=== PATIENT | female | born 1975 | race Caucasian/White ===

== ENCOUNTER 2019-08-02 16:02 | Emergency (ER) | payer MEDICAID, MEDICARE ==
[2019-08-02 16:11] VITALS: BP 109/65
[2019-08-02 16:36] LABS: ABSOLUTE BASOPHILS # (AUTO) 0.1 10^3/uL (0.0-0.2); ABSOLUTE LYMPHOCYTES (AUTO) 3.2 10^3/uL (0.5-4.7); ABSOLUTE MONOCYTES (AUTO) 0.6 10^3/uL (0.1-1.4); ABSOLUTE NEUT (AUTO) 7.8 10^3/uL (1.7-8.2); BASOPHILS % (AUTO) 0.5 % (0-2); EOSINOPHILS % (AUTO) 0.3 % (0-6); HEMATOCRIT 42.2 % (36.0-47.0); HEMOGLOBIN 14.5 g/dL (12.0-15.5); LYMPHOCYTES % (AUTO) 27.1 % (13-45); MEAN CORPUSCULAR HEMOGLOBIN 31.4 pg (27.0-33.4); MEAN CORPUSCULAR HGB CONC 34.4 g/dL (32.0-36.0); MEAN CORPUSCULAR VOLUME 91 fl (80-97); MONOCYTES % (AUTO) 5.4 % (3-13); PLATELET COUNT 220 10^3/uL (150-450); RED BLOOD COUNT 4.63 10^6/uL (3.72-5.28); RED CELL DISTRIBUTION WIDTH 14.7 % (11.5-14.0); SEGMENTED NEUTROPHILS % (AUTO) 66.7 % (42-78); TOTAL CELLS COUNTED % (AUTO) 100 %; WHITE BLOOD COUNT 11.7 10^3/uL (4.0-10.5)
[2019-08-02] MEDS ORDERED: LORAZEPAM 1 MG TABLET PO ONE (16:37)
--- NOTE | 2019-08-02 16:41 | ER Document Report ---
ED Substance Abuse / Acc. OD - General Chief Complaint: Alcohol Withdrawl Stated Complaint: ETOH/NEEDS LABS FOR WRIGHT Time Seen by Provider: 08/02/19 16:11 Mode of Arrival: Ambulatory Information source: Patient Notes: Patient is a 44-year-old female presenting to the emergency department with josefa houser for medical clearance so that she can go to [place] for substance abuse treatment. Patient reports she has a long history of alcoholism, states she was sober for 6 years until she relapsed 4 days ago. Patient reports she has been drinking beer for the last 4 days. She states her last drink was at 9:00 this morning. Patient reports that she feels like she is going to go through DTs. She denies any suicidal homicidal ideations. - Related Data Allergies/Adverse Reactions: morphine [Morphine] Allergy (Severe, Verified 05/03/13 18:32) Anaphylaxis Past Medical History - General Information source: Patient - Social History Smoking Status: Current Every Day Smoker Frequency of alcohol use: Heavy Drug Abuse: None Family History: Reviewed & Not Pertinent Patient has homicidal ideation: No - Past Medical History Cardiac Medical History: Reports: Hx Hypertension Malignancy Medical History: Reports: Hx Cervical Cancer Past Surgical History: Reports: Hx Orthopedic Surgery - Immunizations Hx Diphtheria, Pertussis, Tetanus Vaccination: No - unknown Review of Systems - Review of Systems Constitutional: No symptoms reported EENT: No symptoms reported Cardiovascular: No symptoms reported Respiratory: No symptoms reported Gastrointestinal: No symptoms reported Genitourinary: No symptoms reported Female Genitourinary: No symptoms reported Musculoskeletal: No symptoms reported Skin: No symptoms reported Hematologic/Lymphatic: No symptoms reported Neurological/Psychological: No symptoms reported Physical Exam - Vital signs Vitals: Temp Pulse Resp BP Pulse Ox 98.8 F 109 H 14 109/65 96 08/02/19 16:08 08/02/19 16:08 08/02/19 16:08 08/02/19 16:08 08/02/19 16:08 - Notes Notes: PHYSICAL EXAMINATION: GENERAL: Well-appearing, well-nourished and in no acute distress. HEAD: Atraumatic, normocephalic. EYES: Pupils equal round and reactive to light, extraocular movements intact, conjunctiva are normal. ENT: Nares patent, oropharynx clear without exudates. Moist mucous membranes. NECK: Normal range of motion, supple without lymphadenopathy LUNGS: Breath sounds clear to auscultation bilaterally and equal. No wheezes rales or rhonchi. HEART: Regular rate and rhythm without murmurs ABDOMEN: Soft, nontender, nondistended abdomen. No guarding, no rebound. No masses appreciated. Female : deferred Musculoskeletal: Normal range of motion, no pitting or edema. No cyanosis. NEUROLOGICAL: Cranial nerves grossly intact. Normal speech, normal gait. Normal sensory, motor exams PSYCH: Anxious, tearful. SKIN: Warm, Dry, normal turgor, no rashes or lesions noted. Course - Re-evaluation Re-evalutation: 08/02/19 16:42 Patient now requesting to leave, she states that she does not want to go to rehab. Patient is alert, oriented, able to make her own decisions, she is able to ambulate without assistance. She is leaving AGAINST MEDICAL ADVICE. - Vital Signs Vital signs: Temp Pulse Resp BP Pulse Ox 98.8 F 109 H 14 109/65 96 08/02/19 16:24 08/02/19 16:08 08/02/19 16:08 08/02/19 16:08 08/02/19 16:08 - Laboratory Result Diagrams: 08/02/19 16:20 08/02/19 16:20 Discharge - Discharge Clinical Impression: Left against medical advice Condition: Stable Disposition: AGAINST MEDICAL ADVICE
[2019-08-02 16:53] LABS: ACETAMINOPHEN < 10 ug/mL (10-30); ALBUMIN 4.4 g/dL (3.5-5.0); ALCOHOL 286 mg/dL (NONE DETECTED); ALKALINE PHOSPHATASE 116 U/L (38-126); ANION GAP 13 (5-19); ASPARTATE AMINO TRANSFERASE 44 U/L (14-36); BILIRUBIN,TOTAL 0.5 mg/dL (0.2-1.3); BLOOD UREA NITROGEN 11 mg/dL (7-20); CALCIUM 8.9 mg/dL (8.4-10.2); CARBON DIOXIDE 23 mmol/L (22-30); CHLORIDE 102 mmol/L (98-107); GLUCOSE 97 mg/dL (75-110); POTASSIUM 4.6 mmol/L (3.6-5.0); SALICYLATE < 1.0 mg/dL (2.0-20.0)
--- NOTE | 2019-08-02 21:25 | EKG REPORT ---
SEVERITY:- NORMAL ECG - SINUS RHYTHM : Confirmed by: Emma Hernández MD 02-Aug-2019 21:24:29
== END 2019-08-02 16:40 | disposition left against medical advice (07) ==
LOC: ER 16:02
DX: F10.239 Alcohol dependence with withdrawal, unspecified (principal); F17.200 Nicotine dependence, unspecified, uncomplicated; I10 Essential (primary) hypertension; Z85.41 Personal history of malignant neoplasm of cervix uteri
CPT/HCPCS: 36415; 80053; 80307; 84703; 85025; 93005; 93010; 99284

== ENCOUNTER 2019-08-14 17:34 | Emergency (ER) | payer MEDICARE ==
[2019-08-14 19:00] VITALS: BP 113/50
--- NOTE | 2019-08-14 19:46 | ER Document Report ---
ED General - General Chief Complaint: Cough Stated Complaint: CHEST CONGESTION Time Seen by Provider: 08/14/19 18:59 Mode of Arrival: Ambulatory Information source: Patient Notes: 44-year-old female presented to ED for complaint of cough off and on for week no fever no chills. She states she is an alcoholic and she needs help with her alcoholism. She states she needs detox. I explained to her that she needed to go to [place] for detox that we do not do detox in the emergency room. She states she did not want any blood she does not recently and then she went home afterwards she just wanted to be given medicine for detox. I did explain to her that that is not the process in the emergency room. She states that I cannot give her medicine to help her detox and she just cannot go home because that is what she is here for. I explained to her that she would need to get blood work urine and then talk with [facility] for detox. Patient states she was just going to go home. She is alert oriented able answer questions appropriately she is walking with a even steady gait. Lungs are clear to auscultation she is afebrile. - HPI Onset: Other - Patient states her last alcoholic drink was just before coming to the emergency room and she needed medicine for detox Onset/Duration: Persistent Quality of pain: No pain Severity: None Pain Level: Denies Associated symptoms: None Exacerbated by: Denies Relieved by: Denies Similar symptoms previously: Yes Recently seen / treated by doctor: Yes - Related Data Allergies/Adverse Reactions: morphine [Morphine] Allergy (Severe, Verified 05/03/13 18:32) Anaphylaxis Past Medical History - General Information source: Patient - Social History Smoking Status: Current Every Day Smoker Frequency of alcohol use: Heavy Drug Abuse: Prescription drugs Lives with: Homeless Family History: Reviewed & Not Pertinent Patient has homicidal ideation: No - Past Medical History Cardiac Medical History: Reports: Hx Hypertension Pulmonary Medical History: Reports: None EENT Medical History: Reports: None Neurological Medical History: Reports: None Endocrine Medical History: Reports: None Renal/ Medical History: Reports: None Malignancy Medical History: Reports: Hx Cervical Cancer GI Medical History: Reports: None Musculoskeletal Medical History: Reports Hx Musculoskeletal Deformity, Reports Hx Musculoskeletal Trauma Skin Medical History: Reports None Psychiatric Medical History: Reports: None Traumatic Medical History: Reports: None Infectious Medical History: Reports: None Past Surgical History: Reports: Hx Orthopedic Surgery - Immunizations Hx Diphtheria, Pertussis, Tetanus Vaccination: No - unknown Review of Systems - Review of Systems Constitutional: See HPI - States she needs medications for detox but does not want any blood drawn does not want to give a urine and does not want to go to rehab EENT: No symptoms reported Cardiovascular: No symptoms reported Respiratory: No symptoms reported Gastrointestinal: No symptoms reported Genitourinary: No symptoms reported Female Genitourinary: No symptoms reported Musculoskeletal: No symptoms reported Skin: No symptoms reported Hematologic/Lymphatic: No symptoms reported Neurological/Psychological: No symptoms reported Physical Exam - Vital signs Vitals: Temp 98.2 F 08/14/19 17:53 Interpretation: Normal, Tachycardic - General General appearance: Appears well, Alert - HEENT Head: Normocephalic, Atraumatic Eyes: Normal Pupils: PERRL - Respiratory Respiratory status: No respiratory distress Chest status: Nontender Breath sounds: Normal. No: Decreased air movement, Nonproductive cough, Productive cough, Rales, Rhonchi, Stridor, Wheezing Chest palpation: Normal - Cardiovascular Rhythm: Regular Heart sounds: Normal auscultation Murmur: No - Abdominal Inspection: Normal Distension: No distension Bowel sounds: Normal Tenderness: Nontender Organomegaly: No organomegaly - Back Back: Normal, Nontender - Extremities General upper extremity: Normal inspection, Nontender, Normal color, Normal ROM, Normal temperature General lower extremity: Normal inspection, Nontender, Normal color, Normal ROM, Normal temperature, Normal weight bearing. No: Mark's sign - Neurological Neuro grossly intact: Yes Cognition: Normal Orientation: AAOx4 [place] Coma Scale Eye Opening: Spontaneous Lakshmi Coma Scale Verbal: Oriented [place] Coma Scale Motor: Obeys Commands Lakshmi Coma Scale Total: 15 Speech: Normal Motor strength normal: LUE, RUE, LLE, RLE Sensory: Normal - Psychological Associated symptoms: Normal affect, Normal mood - Skin Skin Temperature: Warm Skin Moisture: Dry Skin Color: Normal Course - Re-evaluation Re-evalutation: 08/14/19 19:46 Patient stated that she cannot have medicines for detox she was not going stay. She did not want blood urine sent she did not want to go to [place] she just wants medicines for her detox. - Vital Signs Vital signs: Temp Pulse Resp BP Pulse Ox 98.4 F 105 H 16 113/50 L 93 08/14/19 18:52 08/14/19 18:52 08/14/19 18:52 08/14/19 18:52 08/14/19 18:52 Discharge - Discharge Clinical Impression: Requesting meds for detox Disposition: AGAINST MEDICAL ADVICE
== END 2019-08-14 19:22 | disposition left against medical advice (07) ==
LOC: ER 17:34
DX: F10.20 Alcohol dependence, uncomplicated (principal); R05 Cough; F19.10 Other psychoactive substance abuse, uncomplicated; I10 Essential (primary) hypertension; F17.200 Nicotine dependence, unspecified, uncomplicated; Z59.0 Homelessness; Z85.41 Personal history of malignant neoplasm of cervix uteri; Z88.6 Allergy status to analgesic agent; Z88.5 Allergy status to narcotic agent; Z53.29 Procedure and treatment not carried out because of patient's decision for other reasons
CPT/HCPCS: 99282